=== PATIENT | female | born 1995 | race Caucasian/White ===

== ENCOUNTER 2016-10-13 18:04 | Emergency (ER) | payer MEDICAID, OTHER ==
[~2016-10-13] VITALS: Ht 160 cm; Wt 68.7 kg
[~2016-10-13 18:04] MED LIST: NAPR500T1 PO
[2016-10-13 18:07] VITALS: BP 126/63
[2016-10-13] MEDS ORDERED: NACL 0.9% 1,000 ML IV ONE (18:25)
[2016-10-13] MEDS ORDERED: KETOROLAC 30 MG/ML VIAL IVP ONE (18:35)
[2016-10-13 19:07] LABS: APPEARANCE,URINE HAZY (CLEAR); BILIRUBIN,URINE NEGATIVE (NEGATIVE); BLOOD, URINE NEGATIVE (NEGATIVE); COLOR,URINE YELLOW (YELLOW); LEUKOCYTE ESTERASE ,URINE 1+ (NEGATIVE); NITRITE, URINE NEGATIVE (NEGATIVE); PROTEIN,URINE TRACE (NEGATIVE); UGLUCOSE NEGATIVE (NEGATIVE); UROBILINOGEN,URINE 0.2 EU/dL (0.2 - 1)
[2016-10-13 19:26] LABS: BACTERIA,URINE 4+ /HPF (None Seen); MUCUS,URINE 4+ /LPF (None Seen); RBC,URINE 0-5 /HPF (0-5)
[2016-10-13] MEDS ORDERED: KETOROLAC 60 MG/2 ML VIAL IM ONE (19:55)
[2016-10-13 20:20] VITALS: BP 110/60
== END 2016-10-13 20:20 | disposition home or self-care (01) ==
LOC: MED 18:04
DX: M54.5 Low back pain (principal); R03.0 Elevated blood-pressure reading, without diagnosis of hypertension; Z79.899 Other long term (current) drug therapy
CPT/HCPCS: 81001; 81025; 87086; 96361; 96372; 96374; 99284; J1885; J7030

== ENCOUNTER 2016-12-21 12:32 | Emergency (ER) | payer MEDICAID ==
[~2016-12-21] VITALS: Ht 162.6 cm; Wt 68.2 kg
[2016-12-21 12:39] VITALS: BP 103/74
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
--- NOTE | 2016-12-21 12:51 | NUR ---
Patient ambulated to bed 07.
--- NOTE | 2016-12-21 12:52 | NUR ---
Patient being evaluated by DR PEARCE at bedside.
[2016-12-21] MEDS ORDERED: KETOROLAC 60 MG/2 ML VIAL IM ONE (13:00)
--- NOTE | 2016-12-21 13:05 | NUR ---
PT TAKEN TO X RAY VIA W/C, ACCOMPANIED BY OVERNIGHT CAREGIVER.
--- NOTE | 2016-12-21 13:27 | NUR ---
MOTHER AT BEDSIDE. Patient appears to be resting comfortably in bed. Vital Signs within normal limits. Respirations even and unlabored.WILL CONTINUE TO MONITOR.
--- NOTE | 2016-12-21 13:43 | NUR ---
Patient being reevaluated by DR PEARCE at bedside.
[2016-12-21 13:46] VITALS: BP 103/73
--- NOTE | 2016-12-21 13:46 | NUR ---
Patient discharged with v/s stable. Written and verbal after care instructions given and explained. Patient alert, oriented and verbalized understanding of instructions. Ambulatory with steady gait. All questions addressed prior to discharge. ID band removed. Patient advised to follow up with PMD. Rx of MOTRIN & NORCO given. Patient educated on indication of medication including possible reaction and side effects. Opportunity to ask questions provided and answered.
== END 2016-12-21 13:46 | disposition home or self-care (01) ==
LOC: MED 12:32
DX: S13.4XXA Sprain of ligaments of cervical spine, initial encounter (principal); R07.9 Chest pain, unspecified; V89.2XXA Person injured in unspecified motor-vehicle accident, traffic, initial encounter; Y93.89 Activity, other specified; Y92.410 Unspecified street and highway as the place of occurrence of the external cause; Y99.9 Unspecified external cause status
CPT/HCPCS: 71020; 72040; 81002; 81025; 96372; 99284; J1885

== ENCOUNTER 2018-05-15 22:47 | Emergency (ER) | payer MEDICAID ==
[~2018-05-15] VITALS: Ht 160 cm; Wt 72.6 kg
[~2018-05-15 22:47] MED LIST changes: +NAPR-54 PO; -NAPR500T1 PO
[2018-05-15 23:11] VITALS: BP 126/76
--- NOTE | 2018-05-15 23:15 | NUR ---
PT AMBULATED TO LOBBY WITH VSS. PROVIDING URINE.
--- NOTE | 2018-05-16 02:05 | NUR ---
PT AMBULATED TO BED 11
--- NOTE | 2018-05-16 02:10 | NUR ---
DIFUSE ABD PAIN, TRUJILLO, AND MUSLCE CRAMPING ALL OVER SINCE YESTERDAY. STATES PAIN 9/10 AT THIS TIME. DENIES FEVER, N/V, SOB, OR CP. STATES MILD TENDERNESS IN MEDIAL LOWER ABD.
[2018-05-16] MEDS ORDERED: KETOROLAC 60 MG/2 ML VIAL IM ONE (03:10)
[2018-05-16 03:31] VITALS: BP 126/76
--- NOTE | 2018-05-16 03:31 | NUR ---
Patient discharged with v/s stable. Written and verbal after care instructions given and explained. Patient alert, oriented and verbalized understanding of instructions. Ambulatory with steady gait. All questions addressed prior to discharge. ID band removed. Patient advised to follow up with PMD. Rx of zofran, prednisone, motrin given. Patient educated on indication of medication including possible reaction and side effects. Opportunity to ask questions provided and answered.
== END 2018-05-16 03:31 | disposition home or self-care (01) ==
LOC: MED 22:47
DX: R10.13 Epigastric pain (principal); R51 Headache; R19.7 Diarrhea, unspecified; R11.0 Nausea; M79.10 Myalgia, unspecified site; Z79.1 Long term (current) use of non-steroidal anti-inflammatories (NSAID)
CPT/HCPCS: 81002; 81025; 87804; 96372; 99283; J1885

== ENCOUNTER 2019-03-11 17:33 | Emergency (ER) | payer MEDICAID ==
[~2019-03-11] VITALS: Ht 160 cm; Wt 78.6 kg
[2019-03-11 17:56] VITALS: BP 108/64
--- NOTE | 2019-03-11 18:04 | NUR ---
PT AMB TO BED 11
--- NOTE | 2019-03-11 18:07 | NUR ---
C/O NAUSEA, HEADACHE, DIARRHEA, ABDOMINAL PAIN X 3 DAYS MED HX:IBS . SKIN IS PINK/WARM/DRY; AAOX4 WITH EVEN AND STEADY GAIT; LUNGS CLEAR BL; HR EVEN AND REGULAR; PT DENIES ANY FEVER, CP, SOB, OR COUGH AT THIS TIME; PATIENT STATES PAIN OF 9/10 AT THIS TIME; VSS; PATIENT POSITIONED FOR COMFORT; HOB ELEVATED; BEDRAILS UP X2; BED DOWN. ER MD MADE AWARE OF PT STATUS. FAMILY AT BEDSIDE.
[2019-03-11] MEDS ORDERED: ONDANSETRON 4 MG ODT PO ONE (18:10)
[2019-03-11] MEDS ORDERED: IBUPROFEN 600 MG TAB PO ONE (18:10)
[2019-03-11 18:38] LABS: APPEARANCE,URINE CLEAR (CLEAR); BILIRUBIN,URINE NEGATIVE (NEGATIVE); BLOOD, URINE 1+ (NEGATIVE); COLOR,URINE YELLOW (YELLOW); LEUKOCYTE ESTERASE ,URINE TRACE (NEGATIVE); NITRITE, URINE POSITIVE (NEGATIVE); PH,URINE 5.5 (5.0-9.0); UGLUCOSE NEGATIVE (NEGATIVE)
[2019-03-11 19:07] LABS: RBC,URINE NONE SEEN /HPF (0-5)
--- NOTE | 2019-03-11 19:10 | NUR ---
ENDORSED TO PM SHIFT RN.
[2019-03-11] MEDS ORDERED: MORPHINE SULFATE 4 MG/ML SYR IM ONE (19:35)
[2019-03-11 20:20] VITALS: BP 108/64
--- NOTE | 2019-03-11 20:20 | NUR ---
Patient discharged with v/s stable. Written and verbal after care instructions given and explained. Patient alert, oriented and verbalized understanding of instructions. Ambulatory with steady gait. All questions addressed prior to discharge. ID band removed. Patient advised to follow up with PMD. Rx of NORCO, MOTRIN, CIPRO, IMMODIUM given. Patient educated on indication of medication including possible reaction and side effects. Opportunity to ask questions provided and answered.
== END 2019-03-11 20:20 | disposition home or self-care (01) ==
LOC: MED 17:33
DX: N39.0 Urinary tract infection, site not specified (principal); R19.7 Diarrhea, unspecified; Z79.899 Other long term (current) drug therapy
CPT/HCPCS: 81001; 81025; 87086; 96372; 99283; J2270; Q0162

== ENCOUNTER 2022-03-23 10:00 | Emergency (ER) | payer MEDICAID ==
[~2022-03-23] VITALS: Ht 162.6 cm; Wt 83.9 kg
[2022-03-23 10:06] VITALS: BP 111/64
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
[2022-03-23] MEDS ORDERED: ONDANSETRON 4 MG/2 ML VIAL IVP ONE (11:15)
[2022-03-23] MEDS ORDERED: ALBUTEROL 0.083% 2.5 MG/3 ML NEBU INH ONE (11:15)
[2022-03-23] MEDS ORDERED: diphenhydrAMINE 50 MG/ML VIAL IVP ONE (11:15)
[2022-03-23] MEDS ORDERED: KETOROLAC 30 MG/ML VIAL IVP ONE (11:15)
[2022-03-23] MEDS ORDERED: NACL 0.9% 1,000 ML IV ONE (11:15)
--- NOTE | 2022-03-23 11:42 | NUR ---
RT AT BEDSIDE FOR BREATHING TREATMENT
[2022-03-23] MEDS ORDERED: [UNRECOGNIZED DRUG - CODE] PO (12:01)
[2022-03-23] MEDS ORDERED: GUAI-649 PO (12:01)
[2022-03-23] MEDS ORDERED: PRON INH (12:01)
[2022-03-23] MEDS ORDERED: IBUP-2213 PO (12:01)
[2022-03-23] MEDS ORDERED: ALBU0.0912 INH (12:01)
--- NOTE | 2022-03-23 12:32 | NUR ---
Patient discharged with v/s stable. Written and verbal after care instructions ABOUT ACUTE BRONCHITIS given and explained. Patient alert, oriented and verbalized understanding of instructions. Ambulatory with steady gait. All questions addressed prior to discharge. ID band removed. Patient advised to follow up with PMD. Rx of PROVENTIL HFA, [id number], MUCINEX D ER [id number], MOTRIN, PROVENTIL NEB given. Patient educated on indication of medication including possible reaction and side effects. Opportunity to ask questions provided and answered.
--- NOTE | 2022-03-23 12:32 | NUR ---
ERMD STATES OK TO DC WITH HR 116, FINISHED BREATHING TREATMENT
== END 2022-03-23 12:32 | disposition home or self-care (01) ==
LOC: MED 10:00
DX: J20.8 Acute bronchitis due to other specified organisms (principal); Z20.822 Contact with and (suspected) exposure to COVID-19
CPT/HCPCS: 81025; 87426; 87804; 94640; 94760; 96361; 96374; 96375; 99284; J1200; J1885; J2405; J7613

== ENCOUNTER 2023-07-25 14:23 | Emergency (ER) | payer MEDICAID ==
[~2023-07-25] VITALS: Ht 157.5 cm; Wt 54.9 kg
[~2023-07-25 14:23] MED LIST changes: +ALBU0.0912 INH; +GUAI-649 PO; +IBUP-2213 PO; +NAPR-337 PO; -NAPR-54 PO; +PRON INH; +[UNRECOGNIZED DRUG - CODE] PO
[2023-07-25 14:35] VITALS: BP 117/76; PULSE 81; RESP 17; TEMP 96.8; O2SAT 98
[2023-07-25] MEDS: KETOROLAC 30 MG/ML VIAL IM ONE (15:40)
[2023-07-25] MEDS: ONDANSETRON 4 MG ODT PO ONE (15:40)
[2023-07-25] MEDS ORDERED: ONDA-188 SL (16:11)
[2023-07-25 16:14] LABS: FLU A ANTIGEN negative (NEGATIVE); FLU B ANTIGEN NEGATIVE (NEGATIVE)
[2023-07-25 16:25] VITALS: BP 117/76; PULSE 81; RESP 17; TEMP 96.8; O2SAT 98
== END 2023-07-25 16:25 | disposition home or self-care (01) ==
LOC: MED 14:23
DX: J06.9 Acute upper respiratory infection, unspecified (principal); B97.89 Other viral agents as the cause of diseases classified elsewhere; R11.2 Nausea with vomiting, unspecified; Z20.822 Contact with and (suspected) exposure to COVID-19; Z79.1 Long term (current) use of non-steroidal anti-inflammatories (NSAID); Z79.899 Other long term (current) drug therapy
CPT/HCPCS: 81025; 87081; 87426; 87804; 96372; 99283; J1885; Q0162